=== PATIENT | female | born 1955 | race Caucasian/White ===

== ENCOUNTER → 2017-08-03 11:57 | Outpatient (CLI) | payer OTHER, SELFPAY ==
[2017-08-05 13:09] LABS: HPV Reflexed? NOT INDICATED
== END ==
PROVIDERS: Visit Provider Obstetrics & Gynecology
DX: Z12.4 Encounter for screening for malignant neoplasm of cervix (principal)
CPT/HCPCS: 88175; G0145

== ENCOUNTER → 2017-09-22 09:30 | Outpatient (CLI) | payer OTHER, SELFPAY ==
--- NOTE | 2017-09-22 09:32 | BI_ITS ---
MAMMOGRAPHY - BILATERAL SCREENING REASON FOR EXAM: Female, 62 years old. Routine annual screening examination. PERTINENT HISTORY: Non-contributory. Remote right stereotactic breast biopsy. TECHNIQUE: Digital bilateral breast du (3D mammographic acquisition) in the CC and MLO projections. 2-D mediolateral oblique (MLO) and craniocaudad (CC) views of both breasts were obtained. CAD: Full Field Digital Mammography with Computer Added Detection was performed. COMPARISON: Comparison is made with prior study dated April 22, 2016 and April 04, 2015. FINDINGS: Breast Composition: There are scattered areas of fibroglandular density. There are no dominant masses or suspicious calcifications. A tissue clip marker is seen in a small nodular density in the medial retroareolar region of the right breast. This is unchanged. Stable appearance of the small bilateral benign appearing axillary lymph nodes. No other significant abnormalities are identified. There has been no significant change since the prior study. BI/SCREENING MAMM (CAD), BILAT IMPRESSION: Stable bilateral screening mammogram. Yearly follow-up mammogram recommended. (A) ASSESSMENT CATEGORY: BIRADS Category 2: Benign. A letter regarding these results will be sent to the patient by the facility within 30 days. Approximately 10% of breast cancers are not detected by mammography. A normal mammogram should not delay biopsy of a clinically suspicious abnormality. [id number] Electronically Signed: oRry Virgen MD at 11:27 EDT Tel [phone], Service support ,
== END ==
PROVIDERS: Family Provider Family Medicine; PCP Family Medicine; Visit Provider Obstetrics & Gynecology
DX: Z12.31 Encounter for screening mammogram for malignant neoplasm of breast (principal)
CPT/HCPCS: 77063; 77067

== ENCOUNTER → 2018-01-05 07:55 | Outpatient (CLI) | payer OTHER, SELFPAY ==
--- NOTE | 2018-01-05 07:59 | RAD_ITS ---
STUDY: X-RAY - ESOPHAGUS (BARIUM SWALLOW) WITH FLUOROSCOPY REASON FOR EXAM: Female, 62 years old. Dysphagia for solids. TECHNIQUE: 21 view(s) of the esophagus were obtained following swallowing of barium. FLUOROSCOPY TIME (if supplied): (0:32) minutes/seconds COMPARISON: None. FINDINGS: There is no demonstrated esophageal foreign body. There is evidence of for tertiary contractions of the mid and distal esophagus with 2 and fro movement of the ingested barium. There is a small hiatal hernia of the fundus of the stomach. The patient refused to ingest a 12 mm tablet of barium. There is atherosclerotic calcification of the aortic arch with tortuosity of the descending aorta. Normal visualized pulmonary parenchyma. Normal visualized osseous structures of the thorax. RAD/Esophagus Only IMPRESSION: Tertiary contractions of the mid and distal esophagus. Small hiatal hernia. Electronically Signed: Rory Virgen MD at 13:54 EDT Tel [phone], Service support ,
== END ==
PROVIDERS: Family Provider Family Medicine; PCP Family Medicine; Visit Provider Family Medicine
DX: R13.10 Dysphagia, unspecified (principal)
CPT/HCPCS: 74220

== ENCOUNTER → 2018-09-23 10:39 | Outpatient (CLI) | payer OTHER, SELFPAY ==
--- NOTE | 2018-09-23 10:45 | BI_ITS ---
MAMMOGRAPHY - BILATERAL SCREENING REASON FOR EXAM: Female, 63 years old. Routine annual screening examination. PERTINENT HISTORY: Non-contributory. Remote right stereotactic breast biopsy. TECHNIQUE: Digital bilateral breast du (3D mammographic acquisition) in the CC and MLO projections. 2-D mediolateral oblique (MLO) and craniocaudad (CC) views of both breasts were obtained. CAD: Full Field Digital Mammography with Computer Added Detection was performed. COMPARISON: Comparison is made with prior study September 22, 2017 and April 22, 2016. FINDINGS: Breast Composition: There are scattered areas of fibroglandular density. There are no dominant masses or suspicious calcifications. Interstitial clip markers once again seen in a small nodular density in the medial retroareolar region of the right breast. This is unchanged. Stable appearance of the small bilateral benign-appearing axillary lymph nodes. No other significant abnormalities are identified. There has been no significant change since the prior study. BI/SCREENING MAMM (CAD), BILAT IMPRESSION: Stable bilateral screening mammogram. Yearly follow-up mammogram recommended. (A) ASSESSMENT CATEGORY: BIRADS Category 2: Benign. A letter regarding these results will be sent to the patient by the facility within 30 days. Approximately 10% of breast cancers are not detected by mammography. A normal mammogram should not delay biopsy of a clinically suspicious abnormality. [id number] Electronically Signed: Rory Virgen, at 12:31 EDT , Service support ,
== END ==
PROVIDERS: Family Provider Family Medicine; PCP Family Medicine; Referring Provider Obstetrics & Gynecology; Visit Provider Obstetrics & Gynecology
DX: Z12.31 Encounter for screening mammogram for malignant neoplasm of breast (principal)
CPT/HCPCS: 77063; 77067

== ENCOUNTER 2020-07-05 02:42 | Outpatient (RCR) | payer OTHER, SELFPAY ==
[2020-07-05] MEDS: COVID-19 VACC, MRNA(PFIZER)/PF 30 MCG/0.3 ML SYRINGE IM (09:46)
[2020-07-26] MEDS: COVID-19 VACC, MRNA(PFIZER)/PF 30 MCG/0.3 ML SYRINGE IM (09:34)
== END 2020-07-05 23:59 ==
LOC: IMMUN 02:42
PROVIDERS: PCP Family Medicine; Visit Provider Family Medicine
DX: Z23 Encounter for immunization (principal)
CPT/HCPCS: 0001A; 0002A; 91300

== ENCOUNTER → 2020-10-10 13:31 | Outpatient (CLI) | payer OTHER, SELFPAY ==
--- NOTE | 2020-10-10 13:39 | BI_ITS ---
MAMMOGRAPHY - BILATERAL SCREENING REASON FOR EXAM: Female, 65 years old. Routine annual screening examination. PERTINENT HISTORY: Non-contributory. Remote right stereotactic breast biopsy. TECHNIQUE: Digital bilateral breast seema (3D mammographic acquisition) in the CC and MLO projections. 2-D mediolateral oblique (MLO) and craniocaudad (CC) views of both breasts were obtained. CAD: Full Field Digital Mammography with Computer Added Detection was performed. COMPARISON: Comparison is made with prior study from 12/24/2018 and 09/22/2017. FINDINGS: Breast Composition: There are scattered areas of fibroglandular density. There are no dominant masses or suspicious calcifications. Stable small benign appearing bilateral axillary lymph nodes. A tissue clip marker is once again seen in a tiny nodular density in the medial retroareolar region of the right breast. No other significant abnormalities are identified. There has been no significant change since the prior study. BI/SCRN MAMM (CAD)W/SEEMA BILAT IMPRESSION: Stable bilateral screening mammogram. Yearly follow-up mammogram recommended. (A) ASSESSMENT CATEGORY: BIRADS Category 2: Benign. A letter regarding these results will be sent to the patient by the facility within 30 days. Approximately 10% of breast cancers are not detected by mammography. A normal mammogram should not delay biopsy of a clinically suspicious abnormality. [id number] Electronically Signed: Rory Virgen MD at 14:22 EDT , Service support ,
== END ==
PROVIDERS: PCP Family Medicine; Referring Provider Family Medicine; Visit Provider Family Medicine
DX: Z12.31 Encounter for screening mammogram for malignant neoplasm of breast (principal)
CPT/HCPCS: 77063; 77067

== ENCOUNTER 2021-07-19 09:23 | Outpatient (CLI) | payer MEDICARE, BC, SELFPAY ==
[2021-07-19 10:24] LABS: Absolute Lymphocyte Count 1.66 X10^3/uL (0.83-4.51); Absolute Neutrophil Count 3.1 X10^3/uL (2.0-7.7); Basophil# 0.05 X10^3/uL; Basophil% 0.9 % (0-1); Eosinophil# 0.36 X10^3/uL; Eosinophils% 6.3 % (0-5); Hematocrit 43.2 % (37-47); Hemoglobin 14.4 g/dL (12.0-15.0); Lymphocyte # 1.66 X10^3/ul (0.83-4.51); Mean Corp Hgb Conc 33.3 g/dL (32-36); Mean Corpuscular Hgb 30.9 pg (27.0-32.0); Mean Corpuscular Volume 92.7 fL (81-99); Mean Platelet Vol. 10.5 fl (6.2-12.0); Monocyte# 0.57 X10^3/uL; NRBC Flagged by Analyzer 0 % (0-5); Neutrophil # 3.07 X10^3/uL (2.7-7.7); Neutrophil % 53.6 % (47-70); Platelet Count 244 K/mm3 (150-450); RBC Distribution Width CV 13.3 % (11.6-14.6); RBC Distribution Width SD 45.4 fl (35.1-43.9); Red Blood Count 4.66 M/mm3 (4.2-5.4); White Blood Count 5.7 K/mm3 (4.4-11.0)
[2021-07-19 11:05] LABS: ALB/GLOB Ratio 0.9 RATIO (0.9-2.4); AST(SGOT) 14 U/L (15-37); Alanine Aminotransfer ALT/SGPT 22 U/L (13-56); Albumin, Serum 3.6 g/dL (3.2-5.0); Alkaline Phosphatase 60 U/L (45-117); Anion Gap 3 (5-15); BUN 17 mg/dL (7-18); BUN/Creat Ratio 24.6 RATIO (10-20); Calcium,Total 8.7 mg/dL (8.5-10.1); Chloride 108 mmol/L (98-107); Cholesterol 245 mg/dL (200); Creatinine, Serum 0.69 mg/dL (0.55-1.02); EST Glomerular Filtration Rate 91 mL/min (>60); Est Glom Filt Rate - Afr Amer 110 mL/min (>60); Globulin 3.9 g/dL (2.2-4.2); Glucose 92 mg/dL (74-106); High Density Lipoprotein 62 mg/dL; Potassium 4.3 mmol/L (3.5-5.1); Protein, Total 7.5 g/dL (6.4-8.2); Sodium Level 140 mmol/L (136-145); Thyroid Stim Hormone (TSH) 2.73 uIU/mL (0.358-3.74); Triglycerides 152 mg/dL; Very Low Density Lipoprotein 30 mg/dL (5-40)
== END 2021-07-19 23:59 | disposition home or self-care (01) ==
LOC: MTLAB 09:26
PROVIDERS: PCP Registered Nurse; Referring Provider Registered Nurse; Visit Provider Registered Nurse
DX: E78.00 Pure hypercholesterolemia, unspecified (principal); E66.9 Obesity, unspecified
CPT/HCPCS: 36415; 80053; 80061; 84443; 85025

== ENCOUNTER → 2021-10-31 | Outpatient (CLI) | payer MEDICARE, BC, SELFPAY ==
--- NOTE | 2021-10-31 09:29 | BD_ITS ---
STUDY: DUAL ENERGY X-RAY ABSORPTIOMETRY / DXA REASON FOR EXAM: Female, 66 years old. M810. Patient is postmenopausal. TECHNIQUE: Bone Mineral Density (BMD) measurements of lumbar spine and bilateral hips were obtained. COMPARISON: Comparison is made with prior study of 01/24/2014. FINDINGS: Lumbar Spine (L1-L4): g/cm2 (0.990) / T-score (-0.4) / Z-score (1.4) Findings are suggestive of normal bone density with a low fracture risk. Left Femur Total: g/cm2 (0.805) / T-score (-1.1) / Z-score (0.1) Left Femoral Neck: g/cm2 (0.611) / T-score (-2.1) / Z-score (-0.6) Right Femur Total: g/cm2 (0.772) / T-score (-1.4) / Z-score (-0.1) Right Femoral Neck: g/cm2 (0.683) / T-score (-1.5) / Z-score (0.0) The T-Scores on the most recent prior examination were: Lumbar Spine (L1-L4): There has been worsening of bone density since the previous examination. Left Femur Total: which represents a worsening of 2.7%. Right Femur Total: which represents a worsening of 1.3%. BD/Dexa Bone Density Study IMPRESSION: The patient is considered osteopenic as outlined below according to World [employer]ign[employer] Organization (WHO) criteria with a moderate fracture risk. There has been worsening of bone density since the previous examination. Reference Information: The T-score is the number of standard deviations above or below the standard which is normal for young adults at their peak bone mineral density. The World Health Organization (WHO) interprets the T-scores as follows: Above -1 Normal bone density Between -1 and -2.5 Osteopenia Equal to / or below -2.5 Osteoporosis As a practical clinical guideline, osteopenia may be graded as follows: Mild -1 through -1.5 Moderate -1.6 through -2.0 Severe -2.1 through -2.4 The Z-score is the number of standard deviations above or below age-matched controls. A Z-score of less than -1.5 would be considered abnormal. References: 1. NIH Osteoporosis and Related Bone Diseases www osteo.org 2. International Society for Clinical Densitometry www iscd.org 3. National Osteoporosis Foundation www nof.org Electronically Signed: Rory Virgen MD at 14:47 EDT ,
--- NOTE | 2021-10-31 09:30 | BI_ITS ---
MAMMOGRAPHY - BILATERAL SCREENING REASON FOR EXAM: Female, 66 years old. Routine annual screening examination. PERTINENT HISTORY: Non-contributory. Remote right stereotactic breast biopsy. TECHNIQUE: Digital bilateral breast seema (3D mammographic acquisition) in the CC and MLO projections. 2-D mediolateral oblique (MLO) and craniocaudad (CC) views of both breasts were obtained. CAD: Full Field Digital Mammography with Computer Added Detection was performed. COMPARISON: Comparison is made with prior study dated 10/10/2020 and 09/23/2018. FINDINGS: Breast Composition: There are scattered areas of fibroglandular density. There are no dominant masses or suspicious calcifications. A tissue clip marker is seen in the central medial aspect of the right breast. The nodular density has almost completely resolved at this time. Stable benign-appearing bilateral axillary lymph nodes. No other significant abnormalities are identified. There has been no significant change since the prior study. BI/SCRN MAMM (CAD)W/SEEMA BILAT IMPRESSION: Stable bilateral screening mammogram. Yearly follow-up mammogram recommended. (A) ASSESSMENT CATEGORY: BIRADS Category 2: Benign. A letter regarding these results will be sent to the patient by the facility within 30 days. Approximately 10% of breast cancers are not detected by mammography. A normal mammogram should not delay biopsy of a clinically suspicious abnormality. [id number] Electronically Signed: Rory Virgen MD at 10:34 EDT ,
== END | disposition home or self-care (01) ==
LOC: OPBD 09:27
PROVIDERS: PCP Registered Nurse; Visit Provider Nurse Practitioner Family
DX: Z12.31 Encounter for screening mammogram for malignant neoplasm of breast (principal); M85.80 Other specified disorders of bone density and structure, unspecified site; Z78.0 Asymptomatic menopausal state; M81.0 Age-related osteoporosis without current pathological fracture; Z13.820 Encounter for screening for osteoporosis
CPT/HCPCS: 77063; 77067; 77080

== ENCOUNTER → 2022-06-05 | Outpatient (CLI) | payer MEDICARE, BC, SELFPAY ==
--- NOTE | 2022-06-05 08:23 | RAD_ITS ---
STUDY: X-RAY - ESOPHAGUS (BARIUM SWALLOW) WITH FLUOROSCOPY REASON FOR EXAM: Female, 67 years old. DYSPHAGIA TECHNIQUE: 14 view(s) of the esophagus were obtained following swallowing of barium. FLUOROSCOPY TIME (if supplied): (42 seconds) minutes/seconds COMPARISON: Comparison is made with prior study of 01/05/2018. FINDINGS: There is no demonstrated esophageal foreign body. Tertiary contractions of the distal esophagus. There is no demonstrated stricture or mucosal abnormality. Normal gastroesophageal junction, without a demonstrated hiatal hernia. The patient was unable to swallow a 12 mm tablet of barium despite several tries. Normal visualized aortic arch and descending thoracic aorta. Normal visualized pulmonary parenchyma. Normal visualized osseous structures of the thorax. RAD/Esophagus Dual Contrast IMPRESSION: Tertiary contractions of the distal esophagus. Electronically Signed: Rory Virgen MD at 8:58 EST ,
== END | disposition home or self-care (01) ==
LOC: RAD 08:21
PROVIDERS: PCP Family Medicine; Referring Provider Internal Medicine Gastroenterology; Visit Provider Internal Medicine Gastroenterology
DX: R13.10 Dysphagia, unspecified (principal)
CPT/HCPCS: 74221

== ENCOUNTER → 2023-01-06 | Outpatient (CLI) | payer MEDICARE, BC, SELFPAY ==
[2023-01-06 12:33] LABS: Vitamin D,25 Hydroxy 38.1 ng/mL
[2023-01-06 12:47] LABS: ALB/GLOB Ratio 0.9 RATIO (0.9-2.4); AST(SGOT) 16 U/L (15-37); Alanine Aminotransfer ALT/SGPT 18 U/L (13-56); Albumin, Serum 3.3 g/dL (3.2-5.0); Alkaline Phosphatase 60 U/L (45-117); Anion Gap 3 (5-15); BUN 18 mg/dL (7-18); BUN/Creat Ratio 26.5 RATIO (10-20); Calcium,Total 9.1 mg/dL (8.5-10.1); Chloride 107 mmol/L (98-107); Cholesterol 229 mg/dL (200); Creatinine, Serum 0.68 mg/dL (0.55-1.02); EST Glomerular Filtration Rate 92 mL/min (>60); Est Glom Filt Rate - Afr Amer 111 mL/min (>60); Globulin 3.7 g/dL (2.2-4.2); Glucose 97 mg/dL (74-106); High Density Lipoprotein 56 mg/dL; Potassium 4.3 mmol/L (3.5-5.1); Sodium Level 138 mmol/L (136-145); Triglycerides 136 mg/dL; Very Low Density Lipoprotein 27 mg/dL (5-40)
== END | disposition home or self-care (01) ==
LOC: MTLAB 09:56
PROVIDERS: PCP Family Medicine; Visit Provider Family Medicine
DX: M81.0 Age-related osteoporosis without current pathological fracture (principal); E78.00 Pure hypercholesterolemia, unspecified
CPT/HCPCS: 36415; 80053; 80061; 82306

== ENCOUNTER → 2023-01-20 | Outpatient (CLI) | payer MEDICARE, BC, SELFPAY ==
--- NOTE | 2023-01-20 12:09 | BI_ITS ---
MAMMOGRAPHY - BILATERAL SCREENING REASON FOR EXAM: Female, 67 years old. Routine annual screening examination. PERTINENT HISTORY: Non-contributory. Remote right stereotactic breast biopsy. TECHNIQUE: Digital bilateral breast seema (3D mammographic acquisition) in the CC and MLO projections. 2-D mediolateral oblique (MLO) and craniocaudad (CC) views of both breasts were obtained. CAD: Full Field Digital Mammography with Computer Added Detection was performed. COMPARISON: Comparison is made with prior study October 31, 2021 and October 10, 2020. FINDINGS: Breast Composition: There are scattered areas of fibroglandular density. There are no dominant masses or suspicious calcifications. A tissue clip marker is once again seen in the central slightly medial aspect of the right breast. Stable benign-appearing bilateral axillary lymph nodes. No other significant abnormalities are identified. There has been no significant change since the prior study. BI/SCRN MAMM (CAD)W/SEEMA BILAT IMPRESSION: Stable bilateral screening mammogram. Yearly follow-up mammogram recommended. (A) ASSESSMENT CATEGORY: BIRADS Category 2: Benign. A letter regarding these results will be sent to the patient by the facility within 30 days. Approximately 10% of breast cancers are not detected by mammography. A normal mammogram should not delay biopsy of a clinically suspicious abnormality. [id number] Electronically Signed: Rory Virgen MD at 13:42 EDT ,
== END | disposition home or self-care (01) ==
LOC: OPBI 12:07
PROVIDERS: PCP Family Medicine; Referring Provider Family Medicine; Visit Provider Family Medicine
DX: Z12.31 Encounter for screening mammogram for malignant neoplasm of breast (principal)
CPT/HCPCS: 77063; 77067

== ENCOUNTER → 2023-05-06 | Outpatient (CLI) | payer MEDICARE, BC, SELFPAY ==
--- NOTE | 2023-05-06 11:14 | RAD_ITS ---
INDICATION: Other specified disorders of tendon EXAMINATION/TECHNIQUE: X-RAY - RIGHT XR Foot Min 3 Views 3 VIEWS COMPARISON: No relevant prior comparison study available FINDINGS: SOFT TISSUES: No soft tissue swelling or gas. No radiopaque foreign body. BONES/JOINTS: No evidence of acute fracture. Surgical screws traversing the calcaneus. Subluxation or dislocation of the distal interphalangeal joint of the second toe. The remainder of the joint spaces are within normal limits.. Plantar calcaneal spur. RAD/Foot min 3 Views IMPRESSION: 1. Postoperative changes. 2. Subluxation or dislocation of the distal interphalangeal joint of the second toe could be chronic. Electronically Signed: Andrew Chong MD at 11:38 EST ,
--- OUTSIDE RECORDS SUMMARY | 2023-05-06 11:33 | XMS RPT_ITS | CCD ---
Author Name Unknown Address [address] [facility] [address] [place] [address] Organization [facility] Care Team Providers Care Union Representative Name Role Phone Ryan Morris MD Unavailable [phone] Raffaele Montenegro MD Primary Care Provider Raffaele Montenegro MD Primary Care Provider [phone] RAFFAELE MONTENEGRO Primary Care Unavailable FRANCHESKA ROSSI Referring Unavailable RAFFAELE MONTENEGRO Primary Care Unavailable FRANCHESKA ROSSI Attending Unavailable RAND PARISI Referring Unavailable RAND PARISI Attending Unavailable RAFFAELE MONTENEGRO Primary Care Unavailable RAND PARISI Referring Unavailable RAFFAELE MONTENEGRO Primary Care Unavailable Allergies Allergy Classification Reported Allergen(s) Allergy Type Date of Onset Reaction(s) Facility (1 source) Acetaminophen / oxyCODONE Drug Allergy 9 [facility] Work Phone: Medications Completed/Discontinued Medications Medication Drug Class(es) Dates Sig (Normalized) Sig (Original) esomeprazole 40 mg delayed release oral capsule (4 sources) Proton Pump Inhibitor Start: 03-07-2011 take 1 capsule by mouth every other day esomeprazole (NEXIUM) 40 mg capsule Take 1 capsule by mouth every other day. 0 03/07/2011 Active Problems Active Problems Problem Classification Problem Date Documented Date Episodic/Chronic Acquired foot deformities (1 source) Acquired pes planus; Translations: [Flat foot [pes planus] (acquired), right foot] Onset: 05-05-2019 05-05-2019 Osteoarthritis (9 sources) Disorder of ankle joint; Translations: [Primary osteoarthritis, unspecified ankle and foot] Onset: 03-31-2022 Chronic Osteoarthritis (2 sources) Osteoarthritis of right knee joint; Translations: [Osteoarthritis of joint of right ankle and/or foot] Onset: 05-05-2019 05-05-2019 Other connective tissue disease (1 source) Dysfunction of posterior tibial tendon; Translations: [Posterior tibial tendinitis, unspecified leg] Episodic Other connective tissue disease (6 sources) Tendinitis; Translations: [Enthesopathy, unspecified] Onset: 01-16-2011 01-16-2011 Episodic Other connective tissue disease (1 source) Posterior tibial tendinitis, unspecified leg; Translations: [Posterior tibial tendon dysfunction] Onset: 03-13-2022 Episodic Other connective tissue disease (1 source) Dysfunction of posterior tibial tendon of right foot; Translations: [Posterior tibial tendinitis, right leg] Onset: 05-05-2019 05-05-2019 Residual codes; unclassified (1 source) Other specified postprocedural states; Translations: [Other specified postprocedural states] Onset: 05-05-2019 05-05-2019 Past or Other Problems Problem Classification Problem Date Documented Da te Episodic/Chronic Acquired foot deformities (4 sources) Talipes planus; Translations: [Flat foot [pes planus] (acquired), right foot] Onset: 03-31-2022 Episodic Other acquired deformities (1 source) Valgus deformity, not elsewhere classified, right knee; Translations: [Valgus deformity, not elsewhere classified, right knee] Onset: 05-05-2019 05-05-2019 Episodic Other connective tissue disease (1 source) Disorder of posterior tibial muscle tendon; Translations: [Unspecified disorder of synovium and tendon, unspecified ankle and foot] Onset: 05-05-2019 05-05-2019 Episodic Other connective tissue disease (1 source) Enthesopathy, unspecified; Translations: [Tendonitis] Onset: 01-16-2011 Episodic Other non-traumatic joint disorders (4 sources) Impingement syndrome of ankle; Translations: [Other specified joint disorders, right ankle and foot] Onset: 03-31-2022 Episodic Unclassified (1 source) Problem Viral infection (4 sources) Molluscum contagiosum infection; Translations: [Molluscum contagiosum] Onset: 05-04-2013 05-04-2013 Episodic Results Test Name Value Interpretation Reference Range Facil ity Vital Signs Date Time Vital Sign Value Performing Clinician Facility NEGATED: Highlighted [id number] 14:44-0500 BMI (Body Mass Index) 35.07 kg/m2 Kimberlyn West AT [facility] Work Phone: NEGATED: Highlighted [id number] 14:44-0500 Body weight 95.26 kg Kimberlyn West AT [facility] Work Phone: NEGATED: Highlighted [id number] 14:44-0500 Body weight 95 kg Kimberlyn West AT [facility] Work Phone: NEGATED: Highlighted [id number] 14:44-0500 BP Diastolic 83 mm[Hg] Kimberlyn West AT [facility] Work Phone: NEGATED: Highlighted [id number] 14:44-0500 BP Systolic 126 mm[Hg] Kimberlyn West AT [facility] Work Phone: NEGATED: Highlighted [id number] 14:44-0500 Heart rate 2+ Kimberlyn West AT [facility] Work Phone: NEGATED: Highlighted [id number] 14:44-0500 Height 165.1 cm Kimberlyn West AT [facility] Work Phone: NEGATED: Highlighted [id number] 14:44-0500 Height 165 cm Kimberlyn West AT [facility] Work Phone: NEGATED: Highlighted [id number] 14:44-0500 Pulse (Heart Rate) 74 /min Kimberlyn West AT [facility] Work Phone: Encounters Encounter Date Encounter Type Care Provider Facility Start: 11-24-2022 ambulatory Francheska العلي Work Phone: Orthopaedics Procedures Date Procedure Procedure Detail Performing Clinician Start: 03-31-2022 Radex ankle complete minimum 3 views Franchesak Rossi MD Work Phone: Start: 05-05-2019 End: 05-05-2019 Blood pressure within normal parameters - no follow-up required Ryan Morris MD Work Phone: Start: 05-05-2019 End: 05-05-2019 BMI documented as above normal parameters - follow-up documented Ryan Morris MD Work Phone: Start: 05-05-2019 End: 05-05-2019 Documentation of current medications Ryan Morris MD Work Phone: Start: 05-05-2019 End: 05-05-2019 Osteoarthritis assess Ryan العلي Work Phone: Start: 05-05-2019 End: 05-05-2019 Pain assessment documented as positive - follow-up documented Ryan Morris MD Work Phone: Start: 05-05-2019 End: 05-05-2019 Tobacco non-user Ryan Mroris MD Work Phone: Start: 03-07-2011 Colonoscopy Rand Ricks Work Phone: NEGATED: Highlighted rowStart: 05-05-2019 End: 05-05-2019 Documentation of current medications Kimberlyn Dodson AT Plan of Treatment Date Care Activity Detail Author Start: 12-26-2022 Covid-19 Vaccine ( season) Covid-19 Vaccine ( season) [facility] Start: 12-26-2022 Influenza vaccination [facility] Start: 04-27-2022 ADVANCE DIRECTIVE DISCUSSION ADVANCE DIRECTIVE DISCUSSION [facility] Start: 04-27-2022 DEPRESSION ASSESSMENT DEPRESSION ASSESSMENT [facility] Start: 06-19-2021 COVID-19 VACCINE (4 - Booster for Pfizer series) COVID-19 VACCINE (4 - Booster for Pfizer series) [facility] Start: 06-19-2021 COVID-19 VACCINE (4 - Pfizer series) COVID-19 VACCINE (4 - Pfizer series) [facility] Start: 04-27-2021 ADVANCE DIRECTIVE DISCUSSION ADVANCE DIRECTIVE DISCUSSION [facility] Start: 04-27-2021 DEPRESSION ASSESSMENT DEPRESSION ASSESSMENT [facility] Start: 03-07-2021 Colonoscopy COLONOSCOPY [facility] Start: 03-07-2021 COLORECTAL CANCER SCREENING COLORECTAL CANCER SCREENING [facility] Start: 02-10-2021 BONE DENSITY BONE DENSITY [facility] Start: 02-10-2021 Bone Density Screening Bone Density Screening [facility] Start: 02-10-2021 Pneumococcal Vaccine: 65+ (1 - PCV) Pneumococcal Vaccine: 65+ (1 - PCV) [facility] Start: 02-10-2021 PNEUMOCOCCAL: 65+ (1 - PCV) PNEUMOCOCCAL: 65+ (1 - PCV) [facility] Start: 05-05-2019 End: 05-05-2019 Appointment Appointment [facility] Work Phone: Start: 05-05-2019 End: 05-05-2019 Radex foot complete minimum 3 views XR FOOT 3+ VWS-RT [facility] Work Phone: Start: 05-05-2019 End: 05-05-2019 Radiologic examination knee 3 views XR KNEE [id number] [facility] Work Phone: Start: 2016 RSV Vaccine (1 - 1-dose 60+ series) RSV Vaccine (1 - 1-dose 60+ series) [facility] Start: 03-18-2014 DIABETES SCREEN DIABETES SCREEN [facility] Start: 03-18-2014 Diabetes Screening Diabetes Screening [facility] Start: 02-10-2006 SHINGRIX VACCINE (1 of 2) SHINGRIX VACCINE (1 of 2) [facility] Start: 02-10-2001 COLOGUARD (FIT-DNA) COLOGUARD (FIT-DNA) [facility] Start: 02-10-[address] COLONOGRAPHY [facility] Start: 02-10-2001 FECAL OCCULT BLOOD FECAL OCCULT BLOOD [facility] Start: 02-10-2001 Lipid 1996 panel - Serum or Plasma Lipid Screening [facility] Start: 02-10-2001 LIPID SCREEN LIPID SCREEN [facility] Start: 02-10-2001 SIGMOIDOSCOPY SIGMOIDOSCOPY [facility] Start: 1996 Mammography [facility] Start: 02-10-1975 Urine microalbumin profile [facility] Start: 02-10-1974 HEPATITIS C SCREENING HEPATITIS C SCREENING [facility] End: 04-11-2023 XR FOOT GENERAL 3V AP/LAT/OBL BILATERAL XR FOOT GENERAL 3V AP/LAT/OBL BILATERAL Radiology Routine Posterior tibial tendon dysfunction 1 Occurrences starting 03/12/2022 until 04/11/2023 [facility] Work Phone: Immunizations Immunization Date Immunization Notes Care Provider Alcira bright 02-18-2022 influenza virus vacc ine, unspecified formulation Xr Rej Work Phone: [facility] Payers Date Payer Category Payer Medicare [id number] 2021 Unknown ZARA ZUÑIGA [place] DICARE SUPPLEMENT [id number] 2021-Present [phone] [address] [place] [address] Indemnity [id number] 2021 Medicare MEDICARE MEDICAR E A AND B [id number] 2021-Present [phone] [address] [address] [place] [address] Medicare [id number] 2021 Medicare [id number] Social History Date Type Detail Facility Start: 05-05-2019 End: 05-05-2019 Assertion Unknown if ever smoked [facility] [place] [facility] Work Phone: Start: 04-02-2011 Tobacco smoking stat us NDIS Never smoked tobacco [facility] Start: 04-02-2011 Tobacco use and exposure Smokeless tobacco non-user [facility] Start: 03-12-2022 Alcohol intake Current drinke r of alcohol (finding) [facility] Start: 1955 Sex Assigned At Not on file [facility] Start: 03-02-2022 End: 03-12-2022 Exposure to SARS-CoV-2 (event) Not sure [facility] Work Phone: Start: 03-21-2022 End: 03-31-2022 Exposure to SARS-CoV-2 (event) Unable to assess [facility] Start: 03-12-2022 End: 05-23-2022 History of Social function [facility] Start: 03-12-2022 End: 05-23-2022 Tobacco use panel [facility] National Score (1-100), lower number is lower risk 49 [facility] Medical Equipment Procedure Code Equipment Code Equipment Origin al Text Equipment Identifier Dates [id number] Implant - [id number] Start: 04-02-2011 Clinical Notes 03-12-2022 to 03-31-2022 Nahomi Mccormick RT(R) - 03/31/2022 12:00 PM Sulaiman Rossi MD - 03/31/2022 10:28 AM Rhonda Parisi - 03/12/2022 9:47 AM Raul Peter LPN - 03/12/2022 9:29 AM EST Note Date & Type Note Facility 03-31-2022 Note HNO ID: [id number] Author: Nahomi Mccormick RT(R) Service: Radiology Author Type: Technologist Type: Progress Notes Filed: 03/31/2022 11:49 AM Note Text: Radiology Service Progress Note PATIENT NAME: Thelma Erickson DATE OF SERVICE: March 31, 2022 TIME: 11:49 AM PATIENT IDENTITY VERIFICATION COMPLETED USING TWO (2) IDENTIFIERS: Name and Date of confirmed by patient verbally. FALL SCREENING: Has the patient had 2 falls in the last year or 1 fall with injury or currently using an Ambulatory Assistive Device (Walker, Cane, Wheelchair, Crutches, etc.)? No PATIENT GENDER DATA: Female. status: : No status: NO. PATIENT RELEVANT IMPLANT DATA REVIEWED: Not Applicable RADIOLOGY DEPARTMENT: General X-ray: Exam(s) Completed: Lower Extremity X-Ray(s): Ankle, Right and Wt. Bearing PERIPHERAL IV DATA: Not applicable SIGNED BY: RT Nahomi CLEARY RT(R) March 31, 2022 11:[address] [facility] 03-31-2022 Note HNO ID: [id number] Author: Francheska Rossi MD Service: ? Author Type: Physician Type: Progress Notes Filed: 03/31/2022 12:51 PM Note Text: New Patient Referring Physician: Vlad MO Thelma Erickson is a 67 year old female here for an office consultation for problems related to Right PTTD. Would like to discuss surgery options for a more permament resolution of pain relief . She was previously seeing Vlad MO for her Right PTTD however he does not offer surgery for this. Reports minor pain toady; pain increases with activity. This has been ongoing for over two years. She is wearing her ankle braces that were prescribed by a previous provider (not Vlad) she has been wearing then for 3-5 years. XR done 03/13/2022 Hx ankle fracture x2 on R. Worse with prolonged standing, not able to go for walks for exercises or shopping. Location pain: R medial arch over callus, some over R lateral malleolus Has bilateral short articulated AFOs Consultation requested by Dr. Parisi for an opinion regarding right foot pain and deformity. My final recommendations will be communicated back to the requesting physician by way of shared medical record or letter via [place] mail [address] Wang s/p Right posterior tibial tendon debridement with flexor digitorum tendn transfer and osteotomy on 04/02/11. Do you have a metal allergy?: No BWC/Work status: none Current Outpatient Medications Medication Sig Dispense Refill fexofenadine (ROSA) 180 mg tablet Take 180 mg by mouth once daily. esomeprazole (NEXIUM) 40 mg capsule Take 1 capsule by mouth every other day. (Patient not taking: Reported on 03/12/2022) 0 No current facility-administered medications for this visit. Allergies As of Date: 03/31/2022 (No Known Allergies) Fully Assessed 03/31/2022 PAST MEDICAL HISTORY Diagnosis Date Constipation Dyspepsia Internal hemorrhoids without mention of complication Seasonal allergies Tendon disorder torn PT tendon PAST SURGICAL HISTORY Procedure Laterality Date BREAST BX NEEDLE CORE RIGHT 2002 COLONOSCOPY FLX DX W/COLLJ SPEC WHEN PFRMD 03/07/11 natural childbirth 1981,1984 OPTX ANKLE DISLOCATION W/REPAIR/INT/XTRNL FIXJ 04/06 ORIF Ankle reconstruction of Rt heal/ ankle ovary removed 1994 WRIST RIGHT OP SURGERY 2006 Occupation: Retired -occupational requirements: none Recreational Activities: none Activities restrictions as follows: none Location: Foot Right Is the patient having any pain? Yes PAIN SCALE: 2 on a scale of 0-10 Pain Onset:gradual and progressive Does the pain radiate? No Associated Factors: swelling Precipitating Factors: Walking, General Activity/Exercise, and As day progresses Relieving Factors: resting Progression: Constant Previous Treatment as follows: Surgery Dr. Bean YAO: Have you had any problems or treatment of the following? If yes please describe. Head:No Eyes:No Ears, nose or throat: No Lungs: No Heart or blood pressure: No Stomach or Bowels: No Kidney or Bladder: No Female organs: No Nerve or mental illness: No DM: No Peripheral Vascular Disease: No Inflammatory Arthritis: Hands Other: Bleeding Disorders: No FAMILY HISTORY: Has any member of your immediate family (parents or siblings) had this same problem? If so , who? and what? No SOCIAL HISTORY Marital Status: Tobacco: Non-smoker, never smoked Alcohol: No alcohol consumption -------- WORKERS' COMPENSATION CLAIM Have you missed work for this problem? No If yes, what dates have you missed? Pending Litigation? No What tests have been done for this problem? X-Rays The patient's pertinent medical history from [facility] has been reviewed. PFOMIS forms have been reviewed. The patient's history of present illness has been confirmed. PHYSICAL EXAM: right ankle, right foot Physical examination reveals an alert and oriented patient who is in no acute distress while sitting and is of normal mood and affect. There were no vitals taken for this visit. R ankle Gait Cycle: Normal Yes, Limp: none at this time. Inspection: Alignment: calcaneal valgus and Pes planus, lateral impingement Symmetry: Swelling: yes R ankle. Redness: no. Ecchymosis: no Effusion: 1 Palpation: Warmth: no, Tenderness: Yes: Ankle lat malleolus and subfibular region; Foot medial over callus, navicular ROM: Ankle- 0 dorsiflexion, 30 plantarflexion Strength: 5 Stability: Ligamentous instability: no Specialized Tests: negative Neurologic Status: normal. Vascular Status: normal Skin: large callus over medial navicular Right Upper Extremities:No gross abnormalities Left Upper Extremities:No gross abnormalities Has bilateral short articulated AFOs Xrays: 03/13/2022, pes planus with calcaneal valgus and ankle arthritis Dx: (M77.9) Tendonitis (trisha (more content not included)... [facility] 03-31-2022 History of Present illness Narrative Radiology Service Progress Note PATIENT NAME: Thelma Erickson DATE OF SERVICE: March 31, 2022 TIME: 11:49 AM PATIENT IDENTITY VERIFICATION COMPLETED USING TWO (2) IDENTIFIERS: Name and Date of confirmed by patient verbally. FALL SCREENING: Has the patient had 2 falls in the last year or 1 fall with injury or currently using an Ambulatory Assistive Device (Walker, Cane, Wheelchair, Crutches, etc.)? No PATIENT GENDER DATA: Female. status: : No status: NO. PATIENT RELEVANT IMPLANT DATA REVIEWED: Not Applicable RADIOLOGY DEPARTMENT: General X-ray: Exam(s) Completed: Lower Extremity X-Ray(s): Ankle, Right and Wt. Bearing PERIPHERAL IV DATA: Not applicable SIGNED BY: THIAGO HOU RT RT Vern(R) March 31, 2022 11:49 AM documented in this encounter [facility] 03-31-2022 History of Present illness Narrative New Patient Referring Physician: Vlad MO Thelma Erickson is a 67 year old female here for an office consultation for problems related to Right PTTD. Would like to discuss surgery options for a more permament resolution of pain relief . She was previously seeing Vlad MO for her Right PTTD however he does not offer surgery for this. Reports minor pain toady; pain increases with activity. This has been ongoing for over two years. She is wearing her ankle braces that were prescribed by a previous provider (not Vlad) she has been wearing then for 3-5 years. XR done 03/13/2022 Hx ankle fracture x2 on R. Worse with prolonged standing, not able to go for walks for exercises or shopping. Location pain: R medial arch over callus, some over R lateral malleolus Has bilateral short articulated AFOs Consultation requested by Dr. Parisi for an opinion regarding right foot pain and deformity. My final recommendations will be communicated back to the requesting physician by way of shared medical record or letter via [place] mail [address] Wang s/p Right posterior tibial tendon debridement with flexor digitorum tendn transfer and osteotomy on 04/02/11. Do you have a metal allergy?: No BWC/Work status: none Current Outpatient Medications Medication Sig Dispense Refill fexofenadine (ROSA) 180 mg tablet Take 180 mg by mouth once daily. esomeprazole (NEXIUM) 40 mg capsule Take 1 capsule by mouth every other day. (Patient not taking: Reported on 03/12/2022) 0 No current facility-administered medications for this visit. Allergies As of Date: 03/31/2022 (No Known Allergies) Fully Assessed 03/31/2022 PAST MEDICAL HISTORY Diagnosis Date Constipation Dyspepsia Internal hemorrhoids without mention of complication Seasonal allergies Tendon disorder torn PT tendon PAST SURGICAL HISTORY Procedure Laterality Date BREAST BX NEEDLE CORE RIGHT 2002 COLONOSCOPY FLX DX W/COLLJ SPEC WHEN PFRMD 03/07/11 natural childbirth 1981,1984 OPTX ANKLE DISLOCATION W/REPAIR/INT/XTRNL FIXJ 04/06 ORIF Ankle reconstruction of Rt heal/ ankle ovary removed 1994 WRIST RIGHT OP SURGERY 2006 Occupation: Retired -occupational requirements: none Recreational Activities: none Activities restrictions as follows: none Location: Foot Right Is the patient having any pain? Yes PAIN SCALE: 2 on a scale of 0-10 Pain Onset:gradual and progressive Does the pain radiate? No Associated Factors: swelling Precipitating Factors: Walking, General Activity/Exercise, and As day progresses Relieving Factors: resting Progression: Constant Previous Treatment as follows: Surgery Dr. Del Angel ROS: Have you had any problems or treatment of the following? If yes please describe. Head:No Eyes:No Ears, nose or throat: No Lungs: No Heart or blood pressure: No Stomach or Bowels: No Kidney or Bladder: No Female organs: No Nerve or mental illness: No DM: No Peripheral Vascular Disease: No Inflammatory Arthritis: Hands Other: Bleeding Disorders: No FAMILY HISTORY: Has any member of your immediate family (parents or siblings) had this same problem? If so , who? and what? No SOCIAL HISTORY Marital Status: Tobacco: Non-smoker, never smoked Alcohol: No alcohol consumption WORKERS' COMPENSATION CLAIM Have you missed work for this problem? No If yes, what dates have you missed? Pending Litigation? No What tests have been done for this problem? X-Rays The patient's pertinent medical history from [facility] has been reviewed. PFOMIS forms have been reviewed. The patient's history of present illness has been confirmed. PHYSICAL EXAM: right ankle, right foot Physical examination reveals an alert and oriented patient who is in no acute distress while sitting and is of normal mood and affect. There were no vitals taken for this visit. R ankle Gait Cycle: Normal Yes, Limp: none at this time. Inspection: Alignment: calcaneal valgus and Pes planus, lateral impingement Symmetry: Swelling: yes R ankle. Redness: no. Ecchymosis: no Effusion: 1 Palpation: Warmth: no, Tenderness: Yes: Ankle lat malleolus and subfibular region; Foot medial over callus, navicular ROM: Ankle- 0 dorsiflexion, 30 plantarflexion Strength: 5 Stability: Ligamentous instability: no Specialized Tests: negative Neurologic Status: normal. Vascular Status: normal Skin: large callus over medial navicular Right Upper Extremities:No gross abnormalities Left Upper Extremities:No gross abnormalities Has bilateral short articulated AFOs Xrays: 03/13/2022, pes planus with calcaneal valgus and ankle arthritis Dx: (M77.9) Tendonitis (primary encounter diagnosis) (M21.41) Pes planus of right foot (M19.079) Ankle arthritis (M19.071) Primary osteoarthritis of right ankle (M19.071) Primary osteoarthritis of right foot (M25.871) Ankle impingement syndrome, right Plan: Discussed options including more conservative with bracing, stability type shoes vs. Surgical option of TTCfusion with realignment. Also discussed two-stage procedure with hindfoot reconstruction and flatfoot reconstruction followed by an ankle replacement. Ordered rigid ankle AFO molded neutral and a stability type shoe HPI explored in detail with patient and edited as necessary. This visit required reviewed the patient's medical records, updating historical information, assessing changes in physical examination, and review of all testing information. It required patient-provider interaction for the medical decision making as documented. The time and /or expertise required in this decision-making process, communicating the results as such with the patient and developing the treatment protocol is reflected in the charge capture section of these electronic medical records. This note was partially generated using [employer] voice recognition system, and there may be some incorrect words, spellings, and punctuation that were not noted in checking the note before saving. Francheska Rossi M.D. documented in this encounter [facility] 03-13-2022 Note HNO ID: [id number] Author: RT Bee(R) Service: Radiology Author Type: Technologist Type: Progress Notes Filed: 03/13/2022 11:53 AM Note Text: Radiology Service Progress Note PATIENT NAME: Thelma Erickson DATE OF SERVICE: March 13, 2022 TIME: 11:42 AM PATIENT IDENTITY VERIFICATION COMPLETED USING TWO (2) IDENTIFIERS: Name and Date of confirmed by patient verbally. FALL SCREENING: Has the patient had 2 falls in the last year or 1 fall with injury or currently using an Ambulatory Assistive Device (Walker, Cane, Wheelchair, Crutches, etc.)? No PATIENT GENDER DATA: Female. status: : No status: NO. PATIENT RELEVANT IMPLANT DATA REVIEWED: Yes RADIOLOGY DEPARTMENT: General X-ray: Exam(s) Completed: Lower Extremity X-Ray(s): Foot, Bilateral and Wt. Bearing PERIPHERAL IV DATA: Not applicable SIGNED BY: RT Bee(R) March 13, 2022 11:[address] [facility] 03-12-2022 Note HNO ID: [id number] Author: Rand Parisi Service: ? Author Type: Physician Type: Progress Notes Filed: 03/12/2022 12:30 PM Note Text: Initial Podiatric Office Visit: Chief Complaint: This 67 year old female who presents with chief complaint:painful callus of right foot HPI Patient presents to clinic for evaluation of right foot She complains of painful callus of right foot and she relates the callus as result of flatfoot She had calcaneal osteotomy [place] [address] Hobson and the surgery went well. Over the past few years, she has noticed that her pain is returning. She has since seen two doctors who had recommend fusion She is not sure on surgery. She does have afo to b/l ankle. These do help but she feels that her activity is limited due to the flatfoot. PAIN EVALUATION 03/12/2022 0932 Pain Level: 7 Pain Location: Foot-Right Description: Throbbing Duration Amount of Time: 12 Duration Units: Years Frequency: Intermittent Intervention/Comfort measure: Reposition;Relaxation No results found for: HBA1C PCP: Raffaele Montenegro MD PAST MEDICAL HISTORY Diagnosis Date Constipation Dyspepsia Internal hemorrhoids without mention of complication Seasonal allergies Tendon disorder torn PT tendon Current Outpatient Medications Medication Sig fexofenadine (ROSA) 180 mg tablet Take 180 mg by mouth once daily. esomeprazole (NEXIUM) 40 mg capsule Take 1 capsule by mouth every other day. (Patient not taking: Reported on 03/12/2022) No current facility-administered medications for this visit. ALLERGIES No Known Allergies PAST SURGICAL HISTORY Procedure Laterality Date BREAST BX NEEDLE CORE RIGHT 2002 COLONOSCOPY FLX DX W/COLLJ SPEC WHEN PFRMD 03/07/11 natural childbirth 1981,1984 OPTX ANKLE DISLOCATION W/REPAIR/INT/XTRNL FIXJ 04/06 ORIF Ankle reconstruction of Rt heal/ ankle ovary removed 1994 WRIST RIGHT OP SURGERY 2006 FAMILY HISTORY Problem Relation Age of Onset Alzheimer's Disease Mother Heart Brother heart attack Genitourinary () Father prostate problems Hearing Loss Mother Hearing Loss Father Lipids Mother hyperlipidemia Thyroid Sister Thyroid Mother Cancer Maternal Grandmother throat cancer Hypertension Mother Cancer Father skin Social History Tobacco Use Smoking status: Never Smokeless tobacco: Never Substance Use Topics Alcohol use: Yes Comment: social drinker Drug use: No REVIEW OF SYSTEMS GENERAL: Negative for Malaise, significant weight loss, fever RESPIRATORY: Negative for cough, wheezing and shortness of breath CARDIOVASCULAR: Negative for chest pain, leg swelling and palpitations GI: Negative for abdominal discomfort, blood in stools or black stools and change in bowel habits : Negative for dysuria, frequency and incontinence MUSCULOSKELETAL: Negative for joint pain or swelling, back pain, and muscle pain. SKIN: Negative for lesions, rash, and itching. HEMATOLOGY/LYMPHOLOGY Negative for prolonged bleeding, bruising easily, and swollen nodes. ENDOCRINE: Negative for cold or heat intolerance, polyuria, polydipsia and goiter. NEURO: negative Physical Exam: Constitutional: Pt is a well developed 67 year old female who is alert, oriented and cooperative Eyes: Following during examination. No redness or drainage. Respiratory: RR normal and nonlabored. Even breathing. No evidence of distress or shortness of breath. Psychology: Patient is engaged during conversation. Normal affect and mood. Does not appear depressed or anxious during encounter. Vascular: Dorsalis pedis and posterior tibial pulses palpable as b/l Capillary Fill time < 5 seconds to digits 1-5 b/l Skin temperature warm to warm proximal to distal b/l Hair growth present to digits Neurological: intact light touch/epicritic sensation b/l intact protective sensation no significant neurological deficits Dermatological: Nails 1-5 b/l appear normal. Webspaces clean and dry 1-4 b/l. Skin appears well hydrated and supple. good color, texture, turgor. No open lesions present. Callus is present to medial aspect of right TN joint Musculoskeletal/Orthopaedic: Patient has pain to palpation of medial column, right foot Foot type is pronated structurally AJ ROM is fulll with knee extended and flexed 1st MPJ is full when loaded and no pain or crepitus are noted with ROM. MTJ, STJ are full and free of pain and crepitus. +5/5 muscle strength dorsiflexion, plantarflexion, inversion, eversion b/l Radiographs: ordered ASSESSMENT: (M76.829) Posterior tibial tendon dysfunction (primary encounter diagnosis) PLAN: 1. History and physical examination performed. 2. Discussed flatfoot of right lower extremity. She had previously undergone calcaneal osteotomy with fdl transfer and this provided her relief for quite some time but her flatfoot is now returning and to make matters worse, she is developing callus denice (more content not included)... [facility] 03-12-2022 Note HNO ID: [id number] Author: Rosmery Peter LPN Service: ? Author Type: LICENSED NURSE Type: Progress Notes Filed: 03/12/2022 12:30 PM Note Text: AMB ROOMING INTAKE FLOWSHEET DATA Risk Screening Do you have concerns about personal safety or safety in the home?: No Pain Pain Level: 7 Pain Location: Foot-Right Description: Throbbing Duration Amount of Time: 12 Duration Units: Years Frequency: Intermittent Intervention/Comfort measure: Reposition, Relaxation Patient presents with: Right Foot - New, Pain, Foot Deformity Patient states she had surgery in 2010 on right foot related to being flat footed. Paient states she would like another opinions on if she need a fusion of right foot/ Rosmery Peter LPN [facility] 03-12-2022 History of Present illness Narrative Initial Podiatric Office Visit: Chief Complaint: This 67 year old female who presents with chief complaint:painful callus of right foot HPI Patient presents to clinic for evaluation of right foot She complains of painful callus of right foot and she relates the callus as result of flatfoot She had calcaneal osteotomy [place] [address] Hobson and the surgery went well. Over the past few years, she has noticed that her pain is returning. She has since seen two doctors who had recommend fusion She is not sure on surgery. She does have afo to b/l ankle. These do help but she feels that her activity is limited due to the flatfoot. PAIN EVALUATION 03/12/2022 0932 Pain Level: 7 Pain Location: Foot-Right Description: Throbbing Duration Amount of Time: 12 Duration Units: Years Frequency: Intermittent Intervention/Comfort measure: Reposition;Relaxation No results found for: HBA1C PCP: Raffaele Montenegro MD PAST MEDICAL HISTORY Diagnosis Date Constipation Dyspepsia Internal hemorrhoids without mention of complication Seasonal allergies Tendon disorder torn PT tendon Current Outpatient Medications Medication Sig fexofenadine (ROSA) 180 mg tablet Take 180 mg by mouth once daily. esomeprazole (NEXIUM) 40 mg capsule Take 1 capsule by mouth every other day. (Patient not taking: Reported on 03/12/2022) No current facility-administered medications for this visit. ALLERGIES No Known Allergies PAST SURGICAL HISTORY Procedure Laterality Date BREAST BX NEEDLE CORE RIGHT 2002 COLONOSCOPY FLX DX W/COLLJ SPEC WHEN PFRMD 03/07/11 natural childbirth 1981,1984 OPTX ANKLE DISLOCATION W/REPAIR/INT/XTRNL FIXJ 04/06 ORIF Ankle reconstruction of Rt heal/ ankle ovary removed 1994 WRIST RIGHT OP SURGERY 2005 FAMILY HISTORY Problem Relation Age of Onset Alzheimer's Disease Mother Heart Brother heart attack Genitourinary () Father prostate problems Hearing Loss Mother Hearing Loss Father Lipids Mother hyperlipidemia Thyroid Sister Thyroid Mother Cancer Maternal Grandmother throat cancer Hypertension Mother Cancer Father skin Social History Tobacco Use Smoking status: Never Smokeless tobacco: Never Substance Use Topics Alcohol use: Yes Comment: social drinker Drug use: No REVIEW OF SYSTEMS GENERAL: Negative for Malaise, significant weight loss, fever RESPIRATORY: Negative for cough, wheezing and shortness of breath CARDIOVASCULAR: Negative for chest pain, leg swelling and palpitations GI: Negative for abdominal discomfort, blood in stools or black stools and change in bowel habits : Negative for dysuria, frequency and incontinence MUSCULOSKELETAL: Negative for joint pain or swelling, back pain, and muscle pain. SKIN: Negative for lesions, rash, and itching. HEMATOLOGY/LYMPHOLOGY Negative for prolonged bleeding, bruising easily, and swollen nodes. ENDOCRINE: Negative for cold or heat intolerance, polyuria, polydipsia and goiter. NEURO: negative Physical Exam: Constitutional: Pt is a well developed 67 year old female who is alert, oriented and cooperative Eyes: Following during examination. No redness or drainage. Respiratory: RR normal and nonlabored. Even breathing. No evidence of distress or shortness of breath. Psychology: Patient is engaged during conversation. Normal affect and mood. Does not appear depressed or anxious during encounter. Vascular: Dorsalis pedis and posterior tibial pulses palpable as b/l Capillary Fill time < 5 seconds to digits 1-5 b/l Skin temperature warm to warm proximal to distal b/l Hair growth present to digits Neurological: intact light touch/epicritic sensation b/l intact protective sensation no significant neurological deficits Dermatological: Nails 1-5 b/l appear normal. Webspaces clean and dry 1-4 b/l. Skin appears well hydrated and supple. good color, texture, turgor. No open lesions present. Callus is present to medial aspect of right TN joint Musculoskeletal/Orthopaedic: Patient has pain to palpation of medial column, right foot Foot type is pronated structurally AJ ROM is fulll with knee extended and flexed 1st MPJ is full when loaded and no pain or crepitus are noted with ROM. MTJ, STJ are full and free of pain and crepitus. +5/5 muscle strength dorsiflexion, plantarflexion, inversion, eversion b/l Radiographs: ordered ASSESSMENT: (M76.829) Posterior tibial tendon dysfunction (primary encounter diagnosis) PLAN: 1. History and physical examination performed. 2. Discussed flatfoot of right lower extremity. She had previously undergone calcaneal osteotomy with fdl transfer and this provided her relief for quite some time but her flatfoot is now returning and to make matters worse, she is developing callus along the tn joint. She does have b/l afo and this helps but she is interested in something more definitive. She had been seen by two providers outside the [facility] who have proposed fusion. 3. I am going to obtain xrays of right foot in weightbearing position 4. I suspect she will need hindfoot fusion by way of subtalar joint and Talonavicular joiint but I will make referral to Dr. Francheska Rossi. 5. Callus reduced with dremmel today. Rand Parisi DPM Podiatry [address] [facility] [address] Dept: [phone] Dept AMB ROOMING INTAKE FLOWSHEET DATA Risk Screening Do you have concerns about personal safety or safety in the home?: No Pain Pain Level: 7 Pain Location: Foot-Right Description: Throbbing Duration Amount of Time: 12 Duration Units: Years Frequency: Intermittent Intervention/Comfort measure: Reposition, Relaxation Patient presents with: Right Foot - New, Pain, Foot Deformity Patient states she had surgery in 2010 on right foot related to being flat footed. Paient states she would like another opinions on if she need a fusion of right foot/ Rosmery Peter LPN documented in this encounter [facility] Diagnosis Tendonitis- Primary Enthesopathy of unspecified site Pes planus of right foot Ankle arthritis Unspecified arthropathy, ankle and foot Primary osteoarthritis of right ankle Primary osteoarthritis of right foot Ankle impingement syndrome, right [facility] Diagnosis Tendonitis Enthesopathy of unspecified site documented in this encounter [facility] for referral (narrative)* Diagnostic Procedure Only (Routine) - Pending Review Specialty Diagnoses / Procedures Referred By Contac t Referred To Contact XR IMAGING Diagnoses Posterior tibial tendon dysfunction Procedures XR FOOT GENERAL 3V AP/LAT/OBL BILATERAL RADEX FOOT COMPLETE MINIMUM 3 VIEWS Rand Parisi [address] [place] [address] Xr Imaging Referral ID Status Reason Start Date Expiration Date Visits Requested Visits Authorized [id number] Pending Review Auto-Generat ed Referral 04/11/2023 1 1 [facility] for referral (narrative)* Diagnostic Procedure Only (Routine) - Closed Specialty Diagnoses / Procedures Referred By Contac t Referred To Contact XR IMAGING Diagnoses Tendonitis Procedures XR ANKLE GENERAL 3V AP/LAT/OBL RIGHT RADEX ANKLE COMPLETE MINIMUM [address] [place] [address] [place] [address] Xr Imaging Referral ID Status Reason Start Date Expiration Date V isits Requested Visits Authorized [id number] Closed Auto-Generate d Referral 03/31/2022 04/30/2023 1 1 [facility] for referral (narrative)* Diagnostic Procedure Only (Routine) - Closed Specialty Diagnoses / Procedures Referred By Contac t Referred To Contact XR IMAGING Diagnoses Tendonitis Procedures XR ANKLE GENERAL 3V AP/LAT/OBL RIGHT RADEX ANKLE COMPLETE MINIMUM [address] [place] [address] [place] [address] [place] [address] Referral ID Status Reason Start Date Expiration Date V isits Requested Visits Authorized [id number] Closed Auto-Generate d Referral 03/31/2022 04/30/2023 1 1 [facility] Chief Complaint Chief Complaint Description Start Date right foot pain Preliminary chief co mplaint data, not yet signed by the author as of Instructions Instruction Description Start Date CompletedPatient advised to follow-up with Primary Care Physician for BMI management. Advance Directives There may be information available, but it has not been provided by the sender. No Advanced Directives Records Found Assessments There may be information available, but it has not been provided by the sender. Review of System There may be information available, but it has not been provided by the sender. Family History There may be information available, but it has not been provided by the sender.No Family History Records Found History of Present Illness There may be information available, but it has not been provided by the sender. Summary Purpose Additional Source Comments Reason for Visit (unrecogniz ed section and content) Reason Comments New Pain Foot Deformity Reason Comments New Pain Reason Comments Radiology XR Specialty Diagnoses / Procedures Referred By Contac t Referred To Contact XR IMAGING Diagnoses Tendonitis Procedures XR ANKLE GENERAL 3V AP/LAT/OBL RIGHT RADEX ANKLE COMPLETE MINIMUM [address] [place] [address] [place] [address] [place] [address] Referral ID Status Reason Start Date Expiration Date V isits Requested Visits Authorized [id number] Closed Auto-Generate d Referral 03/31/2022 04/30/2023 1 1 Source Comments (unrecognize d section and content) In the event this informatio n is protected by the Federal Confidentiality of Alcohol and Drug Abuse Patient Records regulations: The Federal rules restrict any use of the information to criminally investigate or prosecute any alcohol or drug abuse patient.[facility] the event this information is protected by the Federal Confidentiality of Alcohol and Drug Abuse Patient Records regulations: The Federal rules restrict any use of the information to criminally investigate or prosecute any alcohol or drug abuse patient.[facility] the event this information is protected by the Federal Confidentiality of Alcohol and Drug Abuse Patient Records regulations: The Federal rules restrict any use of the information to criminally investigate or prosecute any alcohol or drug abuse patient.[facility] the event this information is protected by the Federal Confidentiality of Alcohol and Drug Abuse Patient Records regulations: The Federal rules restrict any use of the information to criminally investigate or prosecute any alcohol or drug abuse patient.[facility] Care Teams (unrecognized sec tion and content) Union Representative Relationship Specialty Start Date End Date Raffaele Montenegro MD PCP - General 07/31/09 Union Representative Relationship Specialty Start Date End Date Raffaele Montenegro MD PCP - General 07/31/09 Union Representative Relationship Specialty Start Date End Date Raffaele Montenegro MD PCP - General 07/31/09 INFORMATION SOURCE (unrecogn ized section and content) FOR RECORDS PERTAINING TO PATIENTS WHO ARE OR HAVE BEEN ENROLLED IN A CHEMICAL DEPENDENCY/SUBSTANCEABUSE PROGRAM, SOME INFORMATION MAY BE OMITTED. This clinical summary was aggregated from multiple sources. Caution should be exercised in using it in the provision of clinical care. This summary normalizes information from multiple sources, and as a consequence, information in this document may materially change the coding, format and clinical context of patient data. In addition, data may be omitted in some cases. CLINICAL DECISIONS SHOULD BE BASED ON THE PRIMARY CLINICAL RECORDS. [employer] [facility]. provides no warranty or guarantee of the accuracy or completeness of information in this document.
== END | disposition home or self-care (01) ==
LOC: MTRAD 11:12
PROVIDERS: PCP Family Medicine; Referring Provider Podiatrist; Visit Provider Podiatrist
DX: M67.873 Other specified disorders of tendon, right ankle and foot (principal)
CPT/HCPCS: 73630

== ENCOUNTER → 2023-12-30 | Outpatient (CLI) | payer MEDICARE, BC, SELFPAY ==
[2023-12-30 15:25] LABS: Potassium 3.9 mmol/L (3.5-5.1)
== END | disposition home or self-care (01) ==
LOC: MTLAB 12:36
PROVIDERS: PCP Family Medicine
DX: E87.5 Hyperkalemia (principal)
CPT/HCPCS: 36415; 84132

== ENCOUNTER → 2024-03-11 | Outpatient (CLI) | payer MEDICARE, BC, SELFPAY ==
--- NOTE | 2024-03-11 12:22 | BD_ITS ---
STUDY: DUAL ENERGY X-RAY ABSORPTIOMETRY / DXA REASON FOR EXAM: Female, 69 years old. 627.8Menopausal postmenopausal BONE DENSITY REASON FOR EXAM TECHNIQUE: Bone Mineral Density (BMD) measurements of lumbar spine and bilateral hips were obtained. COMPARISON: Comparison is made with prior study dated October 31, 2021 and January 24, 2014. FINDINGS: Lumbar Spine (L1-L4): g/cm2 (1.073) / T-score (-0.3) / Z-score (1.8) Findings are suggestive of normal bone density with a low fracture risk. Left Femur Total: g/cm2 (0.829) / T-score (-0.9) / Z-score (0.5) Left Femoral Neck: g/cm2 (0.636) / T-score (-1.9) / Z-score (-0.2) Right Femur Total: g/cm2 (0.744) / T-score (-1.6) / Z-score (-0.2) Right Femoral Neck: g/cm2 (0.588) / T-score (-2.3) / Z-score (-0.7) The T-Scores on the most recent prior examination were: Lumbar Spine (L1-L4): There has been worsening of bone density since the previous examination. Left Femur Total: which represents an improvement of 3%. Right Femur Total: which represents a worsening of 3.7%. BD/Dexa Bone Density Study IMPRESSION: The patient is considered osteopenic as outlined below according to World Vignesh Organization (WHO) criteria with a high fracture risk. There has been worsening of bone density since the previous examination. Reference Information: The T-score is the number of standard deviations above or below the standard which is normal for young adults at their peak bone mineral density. The World Health Organization (WHO) interprets the T-scores as follows: Above -1 Normal bone density Between -1 and -2.5 Osteopenia Equal to / or below -2.5 Osteoporosis As a practical clinical guideline, osteopenia may be graded as follows: Mild -1 through -1.5 Moderate -1.6 through -2.0 Severe -2.1 through -2.4 The Z-score is the number of standard deviations above or below age-matched controls. A Z-score of less than -1.5 would be considered abnormal. References: 1. NIH Osteoporosis and Related Bone Diseases www osteo.org 2. International Society for Clinical Densitometry www iscd.org 3. National Osteoporosis Foundation www nof.org Electronically Signed: Rory Virgen MD at 15:16 EST ,
--- NOTE | 2024-03-11 12:22 | BI_ITS ---
MAMMOGRAPHY - BILATERAL SCREENING REASON FOR EXAM: Female, 69 years old. Routine annual screening examination. PERTINENT HISTORY: Non-contributory. History of prior right stereotactic breast biopsy. TECHNIQUE: Digital bilateral breast du (3D mammographic acquisition) in the CC and MLO projections. 2-D mediolateral oblique (MLO) and craniocaudad (CC) views of both breasts were obtained. CAD: Full Field Digital Mammography with Computer Added Detection was performed. COMPARISON: Comparison is made with prior study January 20, 2023 and October 31, 2021. FINDINGS: Breast Composition: There are scattered areas of fibroglandular density. There are no dominant masses or suspicious calcifications. A tissue clip marker was again seen in the central medial aspect of the right breast within a tiny nodule. This is unchanged. Stable small bilateral axillary lymph nodes. No other significant abnormalities are identified. There has been no significant change since the prior study. BI/SCREENING MAMM (CAD), BILAT IMPRESSION: Stable bilateral screening mammogram. Yearly follow-up mammogram recommended. (A) ASSESSMENT CATEGORY: BIRADS Category 2: Benign. A letter regarding these results will be sent to the patient by the facility within 30 days. Approximately 10% of breast cancers are not detected by mammography. A normal mammogram should not delay biopsy of a clinically suspicious abnormality. [id number] Electronically Signed: Rory Virgen MD at 15:04 EST ,
== END | disposition home or self-care (01) ==
LOC: OPBD 12:20
PROVIDERS: PCP Family Medicine; Referring Provider Nurse Practitioner Family; Visit Provider Nurse Practitioner Family
DX: Z12.31 Encounter for screening mammogram for malignant neoplasm of breast (principal); Z78.0 Asymptomatic menopausal state; Z13.820 Encounter for screening for osteoporosis
CPT/HCPCS: 77067; 77080